=== PATIENT | male | born 1950 | race Caucasian/White ===

== ENCOUNTER → 2018-01-16 | Day surgery (SDC) | payer MEDICARE, OTHER ==
--- NOTE | 2018-01-14 14:09 | Diagnostic Imaging Report ---
PROCEDURE: Frontal and lateral views of the chest. COMPARISON: None. INDICATIONS: PRE-OPERATIVE CHEST X-RAY FOR RENAL STONE LASER SURGERY FINDINGS: Lines/tubes: None. Lungs: The lungs are well inflated and clear. There is no evidence of pneumonia or pulmonary edema. Pleura: There is no pleural effusion or pneumothorax. Heart and mediastinum: The heart and the mediastinum are normal. Bones: No acute bony abnormality. IMPRESSION: 1. No acute cardiopulmonary disease. Dictated by: Asael Bacon M.D. on 01/14/2018 at 14:11 Electronically approved by: Asael Bacon M.D. on 01/14/2018 at 14:11
[2018-01-14 14:14] LABS: BASOPHILS # (AUTO) 0.1 (0.0-0.1); BASOPHILS % 0.5 % (0.0-1.0); EOSINOPHILS # (AUTO) 0.2 (0.0-0.4); HEMATOCRIT 45.5 % (38.2-49.6); HEMOGLOBIN 16.1 g/dL (14.0-18.0); LYMPHOCYTES # (AUTO) 2.3 (1.0-3.2); MEAN CORPUSCULAR HEMOGLOBIN 30.1 pg (28-32); MEAN CORPUSCULAR HGB CONC 35.4 g/dL (31-35); MEAN CORPUSCULAR VOLUME 85.2 fL (81-99); MONOCYTES # (AUTO) 0.8 (0.2-0.8); MONOCYTES % 7.9 % (4.4-11.3); NEUTROPHILS # (AUTO) 6.9 (2.1-6.9); NEUTROPHILS % 67.3 % (38.7-80.0); PLATELET COUNT 225 x10e3/uL (140-360); RED BLOOD COUNT 5.34 x10e6/uL (4.3-5.7); RED CELL DISTRIBUTION WIDTH 13.2 % (11.7-14.4)
[2018-01-14 14:29] LABS: ANION GAP 14.7 mmol/L (8-16); BLOOD UREA NITROGEN 26 mg/dL (7-26); BUN/CREATININE RATIO 24 (6-25); CALCIUM 10.7 mg/dL (8.4-10.2); CARBON DIOXIDE 25 mmol/L (22-29); CHLORIDE 104 mmol/L (98-107); EST GLOMERULAR FILTRATION RATE > 60 ML/MIN (60-); GLUCOSE 123 mg/dL (74-118); POTASSIUM 3.7 mmol/L (3.5-5.1); SODIUM 140 mmol/L (136-145)
[~2018-01-16] MED LIST: ATORVASTATIN CA20 MG PO; CARVEDILOL12.5 MG PO; CEFTRIAXONE SOD 1 GM VIAL ONE; DEXAMETHASONE SOD PHOS INJ 4 MG/ML VIAL ONE; DIOVAN HCT 1601 EAC1 PO; FENTANYL CITRATE/PF 100MCG/2 ML INJ ONE; GLIMEPIRIDE2 MG PO; IOPAMIDOL 610MG/1ML 300 MG/ML VIAL IV ONE; LIDOCAINE HCL 2% LOCAL INJ 5 ML SDV VIAL INJ ONE; MELOXICAM7.5 MG PO; METFORMIN HCL500 MG PO; MIDAZOLAM HCL 2 MG/2 ML VIAL ONE; ONDANSETRON HCL INJ 2 MG/ML VIAL ONE; PROPOFOL IV EMULSION 10 MG/ML 20 ML VIAL ONE; ROCURONIUM BROMIDE 10 MG/ML 5ML VIAL ONE; SEVOFLURANE INHAL SOLN 250 ML PEN BTL ONE; VITAMIN D PO
--- OUTSIDE RECORDS SUMMARY | 2018-01-16 10:49 | XMS REPORT | Clinical Summary ---
Author Author [facility] [employer] [facility] [employer] Address Unknown Phone Unavailable Care Team Providers Care Home Care Physical Therapist Name Role Phone Ricki Gastelum PCP Allergies No Known Allergies Current Medications Prescription Sig. Disp. Refills Start End Date Status Date atorvastatin (LIPITOR) 20 10/11/19 Active MG tablet 17 metFORMIN XR 10/11/19 Active (GLUCOPHAGE-XR) 500 mg 24 17 hr tablet glimepiride (AMARYL) 2 MG 10/11/19 Active tablet 17 valsartan-hydrochlorothia 10/11/19 Active zide (DIOVAN-HCT) 17 320-12.5 mg per tablet carvedilol (COREG) 12.5 10/11/19 Active MG tablet 17 VITAMIN D2 50,000 unit TAKE 1 CAPSULE (50,000 12 capsule 1 05/17/20 Active capsule UNITS TOTAL) BY MOUTH 17 ONCE A WEEK. ergocalciferol (VITAMIN Take 1 capsule (50,000 12 capsule 1 01/02/20 05/17/20 Discontin D2) 50,000 unit capsule Units total) by mouth 17 17 ued once a week. Active Problems Problem Noted Date Hyperparathyroidism 11/28/2016 Vitamin D deficiency 11/28/2016 Fatigue 11/28/2016 Encounters Date Type Specialty Care Team Description 11/25/2017 Refill Endocrinology Rani Zuniga MD 05/17/2017 Refill Endocrinology Rani Zuniga MD after 01/15/2017 Family History Medical History Relation Name Comments Diabetes Father Hyperlipidemia Father Hypertension Father Alzheimer's disease Mother Relation Name Status Comments Father Alive Mother Social History Tobacco Use Types Packs/Day Years Used Date Former Smoker Smokeless Tobacco: Never Used Alcohol Use Drinks/Week oz/Week Comments Yes Sex Assigned at Date Recorded Not on file Last Filed Vital Signs Not on file Plan of Treatment Health Maintenance Due Date Last Done Comments COLONOSCOPY 2001 SHINGRIX VACCINE (#1) 2001 ZOSTER VACCINE 2011 PNEUMOCOCCAL 2016 POLYSACCHARIDE VACCINE AGE 65 AND OVER PNEUMOCOCCAL-13 2016 INFLUENZA VACCINE 04/10/2018 Results Not on fileafter 01/15/2017 Insurance Payer Benefit Subscriber ID Type Phone Address Plan / Group [employer] xxxxxxxxx PPO [employer]AKUR ADMINS/AET NA SIG ADMIN MEDICARE MEDICARE xxxxxxxxxx Medicare [place], [place] PART A AND B Home:
--- OUTSIDE RECORDS SUMMARY | 2018-01-16 10:49 | XMS REPORT ---
Demographics Address [address] [place] [address] Preferred Language Unknown Marital Status Unknown Jainism Affiliation Unknown Race Unknown Additional Race(s) Ethnic Group Unknown Author Author [facility] Address Unknown Phone Unavailable Care Team Providers Care Automation Tender Name Role Phone CHEMA BRADFORD Unavailable Unavailable Problems This patient has no known problems. Allergies, Adverse Reactions, Alerts This patient has no known allergies or adverse reactions. Medications This patient has no known medications. Results Test Description Test Time Test Comments Text Results Atomic Results Result Comments CHEST 2 VIEWS [place] [address] Patient Name: MAKENNA ZHOU JR MR #: [id number] : 1950 Age/Sex: 67/M Req #: [id number] Adm Physician: Ordered by: CHANNING GALLARDO MD Report #: [id number] Location: OR Room/Bed: Procedure: [id number] DX/CHEST 2 VIEWS Exam Date: 01/14/18 Exam Time: 1354 REPORT STATUS: Signed PROCEDURE: Frontal and lateral views of the chest. COMPARISON: None. INDICATIONS: PRE- OPERATIVE CHEST X-RAY FOR RENAL STONE LASER SURGERY FINDINGS: Lines/ tubes: None. Lungs: The lungs are well inflated and clear. There is no evidence of pneumonia or pulmonary edema. Pleura: There is no pleural effusion or pneumothorax. Heart and mediastinum: The heart and the mediastinum are normal. Bones: No acute bony abnormality. IMPRESSION: 1. No acute cardiopulmonary disease. Dictated by: Asael Hillman M.D. on 01/14/2018 at 14:11 Electronically approved by: Asael Hillman M.D. on 01/14/2018 at 14:11 Dictated By: ASAEL HILLMAN MD [id number] Transcribed By: POOL on 01/14/18 1411 COPY TO: CHANNING GALLARDO MD
--- NOTE | 2018-01-16 11:52 | Diagnostic Imaging Report ---
PROCEDURE:X-RAY ABDOMEN - KUB COMPARISON:None. INDICATIONS:PREOPERATIVE XRAY FOR KIDNEY STONE SURGERY FINDINGS: There is a non-obstructed bowel-gas pattern. Left ureteral stent. 7.4 mm calculus projects over the inferior pole of the left kidney. 4.2 mm calculus projects over the interpolar region of the left kidney. There are no calcifications projected over the right renal shadow, expected course of the ureters or bladder. There are no acute osseous abnormalities. The lung bases are clear. CONCLUSION: Left nephrolithiasis. Left ureteral stent. Dictated by: Gene Gibson M.D. on 01/16/2018 at 11:53 Electronically approved by: Gene Gibson M.D. on 01/16/2018 at 11:53
--- NOTE | 2018-01-16 14:27 | Operative Report ---
DATE OF PROCEDURE: January 16, 2018 PREOPERATIVE DIAGNOSIS 1. Left indwelling ureteral stent. 2. Left ureteral calculus. 3. Left hydronephrosis. POSTOPERATIVE DIAGNOSIS 1. Left indwelling ureteral stent. 2. Left ureteral calculus. 3. Left hydronephrosis. PROCEDURES 1. Cystourethroscopy with a staged complicated removal of left indwelling ureteral stent (entirely separate procedure complicated secondary to massive prostate hypertrophy). 2. Left-sided ureteroscopy with laser lithotripsy in a staged fashion (entirely separate planned staged procedure after previous lithotripsy). 3. Supervision of fluoroscopy. 4. Interpretation of retrograde pyelography. ANESTHESIA: General. ESTIMATED BLOOD LOSS: Minimal. COMPLICATIONS: None. INDICATIONS: Mr. Eaton is a 67-year-old male with a history of a left proximal ureteral calculus, status post lithotripsy, now presenting for a planned cleanup procedure. He and I had a long discussion in regard to the alternatives, the risks and benefits including doing nothing, stent removal, possible replacement, ureteroscopy, percutaneous surgery or open surgery. He voiced understanding of the options, of the alternatives, of the risks and the benefits and elected to proceed. PROCEDURE IN DETAIL: After informed consent was obtained, the patient was taken to the operating suite. He was placed supine on the operating table. He underwent general anesthesia by the anesthesia service. He was placed in the dorsal lithotomy position and sterilely prepped and draped in the standard fashion for cystoscopy. A 22.5-Guyanese cystoscope was inserted per urethra. 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 There was massive trilobar prostatic hypertrophy. The stent was grasped, and it was removed. Attempt was made to catheterize the stent. This failed secondary to encrustation. A guide wire was inserted in the left ureteral orifice, and a left rigid long ureteroscope was advanced to the level of the affecting stones in the left distal ureter. Utilizing a 365-micron laser fiber, the stones were obliterated into fragments smaller than the wire. The flexible ureteroscope was then advanced to the mid ureter where a retrograde pyelogram was performed through the ureteroscope, revealing no filling defects. Collecting system was left full and seen to drain promptly under fluoroscopy after stent and wire removal. At this time, the bladder was drained. The patient was awakened from anesthesia and transported to the recovery room in excellent condition. SUPERVISION OF FLUOROSCOPY AND INTERPRETATION OF RETROGRADE PYELOGRAPHY: I was present throughout the entire procedure, and I supervised fluoroscopy. There was no radiologist present at any time during this procedure. Attention was turned toward the left ureteral orifice, which was catheterized with a ureteroscope. A retrograde pyelogram was performed through the ureteroscope. I supervised fluoroscopy both during the stent removal portion as well as the dilation/ureteroscopy portions. The retrograde pyelograms revealed a tortuous ureter with chronically dilated collecting system which promptly drains under fluoroscopy. Job#: [id number] EV
== END | disposition home or self-care (01) ==
LOC: OR 10:46
PROVIDERS: ATTEND Urology
DX: N20.1 Calculus of ureter (principal); N13.30 Unspecified hydronephrosis; Z46.6 Encounter for fitting and adjustment of urinary device; N35.9 Urethral stricture, unspecified; N40.0 Benign prostatic hyperplasia without lower urinary tract symptoms; J45.909 Unspecified asthma, uncomplicated; I10 Essential (primary) hypertension; E11.9 Type 2 diabetes mellitus without complications; Z01.810 Encounter for preprocedural cardiovascular examination; Z01.812 Encounter for preprocedural laboratory examination; Z01.818 Encounter for other preprocedural examination; Z79.84 Long term (current) use of oral hypoglycemic drugs; Z68.31 Body mass index [BMI] 31.0-31.9, adult; Z84.1 Family history of disorders of kidney and ureter
CPT/HCPCS: 36415 ×2; 52353; 71046; 74018; 74420; 80048; 82948; 85025; 93005; J0696; J1100; J2001; J2250; J2405; Q9967